=== PATIENT | male | born 1970 | race Caucasian/White ===

== ENCOUNTER 2025-08-14 08:43 | Day surgery (SDC) | payer OTHER ==
[~2025-08-14] VITALS: Ht 185.4 cm; Wt 135.6 kg
[~2025-08-14 08:43] MED LIST: IBUP200 PO
[2025-08-14] MEDS ORDERED: NS 0 ML IV ONE (09:05)
[2025-08-14] MEDS ORDERED: CeFAZolin Sodium 2,000 MG VIAL ONE (09:05)
[2025-08-14] MEDS ORDERED: FentaNYL Citrate 50 MCG/ML 2 ML Injection ONE (09:25)
[2025-08-14] MEDS ORDERED: MULTI-VITAMIN1 EAC2 (09:42)
[2025-08-14] MEDS ORDERED: Lidocaine HCl 4% 5 ML SDA ONE (09:53)
[2025-08-14] MEDS ORDERED: Ondansetron HCl 2 MG / ML 2ML Vial ONE (10:09)
[2025-08-14] MEDS ORDERED: Dexamethasone Sod Phos 10 MG/ML 1ML VIAL ONE (10:09)
[2025-08-14] MEDS ORDERED: CeFAZolin Sodium 1000 mg Vial ONE (10:20)
[2025-08-14] MEDS ORDERED: Bupivacaine 0.5% HCl 5 MG/ML 30MLVIAL INJ ONE ×2 (10:26)
[2025-08-14] MEDS ORDERED: Sugammadex Sodium 200 MG/2ML SDV (100 MG/ML) ONE (10:29)
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
[2025-08-14] MEDS ORDERED: HYDROcodone 5-APAP 325 TAB ONE (12:15)
[2025-08-14 12:41] VITALS: BP 143/104
--- NOTE | 2025-08-14 12:51 | NUR ---
08/14/25 1251 RITO CARLISLE REPORT GIVEN TO ANTELMO CINTRON
== END 2025-08-14 13:12 | disposition home or self-care (01) ==
LOC: ORSCSDS 08:43
PROVIDERS: Surgery
PROC: 0WUF0JZ Supplement Abdominal Wall with Synthetic Substitute, Open Approach (ICD-10-PCS; principal; 2025-08-14 10:00)
DX: K43.9 Ventral hernia without obstruction or gangrene (principal); Z87.891 Personal history of nicotine dependence; G47.33 Obstructive sleep apnea (adult) (pediatric); K21.9 Gastro-esophageal reflux disease without esophagitis; E66.9 Obesity, unspecified; Z68.39 Body mass index [BMI] 39.0-39.9, adult
CPT/HCPCS: A9270; C1781; J0690; J1100; J2003; J2405; J2704; J3010; J7120